=== PATIENT | male | born 1955 | race Caucasian/White ===

== ENCOUNTER 2016-12-05 08:05 | Day surgery (SDC) | payer BC ==
[2016-12-05] VITALS (22 sets, daily range): BP systolic 119–191; BP diastolic 72–93; PULSE 62–92; RESP 14–69; Ht 171.4 cm; Wt 103.8 kg
[~2016-12-05] VITALS: Ht 171.4 cm; Wt 103.8 kg
[~2016-12-05 08:05] MED LIST: ADV10050 INHALATION; ALBU18HF INHALATION; ALBU2.5V3 NEB; ASPI81TA3 PO; BENA40TA41 PO; CLON0.2T5 PO; CLOP75TA28 PO; DOCU-144 PO; FENO134C PO; FURO20TA3 PO; HYDR-3498 PO; INSU100C SQ; ISOS30TA5 PO; LANT3I SC; METO-407 PO; POTA8TAB46 PO; RANI150C11 PO; SMV40T PO; TERA2CAP3 PO; TRAZ100T15 PO; VIT500LI PO; vit d2 BU
[2016-12-05 09:52] LABS: ADD SCAN DIFF NO
[2016-12-05 09:53] LABS: BASOPHIL # 0.1 10^3/ul (0.0-0.1); BASOPHILS % 1.2 % (0.0-2.0); EOSINOPHILS # 0.3 10^3/ul (0.0-0.5); EOSINOPHILS % 5.1 % (0.0-7.0); HEMATOCRIT 36.9 % (42.0-52.0); HEMOGLOBIN 12.1 g/dl (14.0-18.0); LYMPHOCYTES # 1.1 10^3/ul (0.8-2.9); LYMPHOCYTES % 21.8 % (15.0-51.0); MEAN CORPUSCULAR HGB CONC 32.8 g/dl (32.0-37.0); MEAN CORPUSCULAR VOLUME 91.6 fl (82.0-101.0); MEAN PLATELET VOLUME 11.4 fl (7.4-10.4); MONOCYTE # 0.4 10^3/ul (0.3-0.9); NEUTROPHIL # 3.1 10^3/ul (1.6-7.5); NEUTROPHILS % 62.7 % (39.0-77.0); PLATELET COUNT 229 10^3/UL (140-415); RED BLOOD COUNT 4.03 10^6/ul (4.70-6.10); RED CELL DISTRIBUTION WIDTH 13.2 % (11.5-14.5); WHITE BLOOD COUNT 4.9 10^3/ul (4.8-10.8)
[2016-12-05 09:56] LABS: INR 0.97; PROTIME 12.9 Sec (12.2-14.2)
[2016-12-05 09:58] LABS: PARTIAL THROMBOPLASTIN TIME 30.4 Sec (25.0-35.0)
[2016-12-05 10:02] LABS: CALCIUM 9.4 mg/dl (8.4-10.2); CREATININE 1.85 mg/dl (0.61-1.24); POTASSIUM 4.5 mmol/L (3.5-5.1)
[2016-12-05] MEDS ORDERED: HEPARIN 1000 UNITS/ML 10 ML INJ ONE (11:07)
[2016-12-05] MEDS ORDERED: IODIXANOL LOCM 100 ML BTL ONE (11:07)
[2016-12-05] MEDS ORDERED: MIDAZOLAM 1 MG/ML 2 ML INJ ONE (11:07)
[2016-12-05] MEDS ORDERED: FENTAnyl 50 MCG/ML VIAL ONE (11:08)
[2016-12-05] MEDS ORDERED: VERAPAMIL 5 MG INJ ONE (11:08)
[2016-12-05] MEDS ORDERED: NITROGLYCERIN (IC) 100 MCG/ML INJ ONE (11:08)
[2016-12-05] MEDS ORDERED: IOHEXOL 350MG/ML 50 ML BTL ONE (12:08)
[2016-12-05] MEDS ORDERED: CLOPIDOGREL 300 MG TAB ONE (12:11)
[2016-12-05] MEDS ORDERED: SOD CHLORIDE 0.9% 1,000 ML IV SCH (13:01)
--- NOTE | 2016-12-05 13:06 | PDOCDIS ---
Discharge Instructions CONDITION Patient Condition: Good HOME CARE INSTRUCTIONS: Diet Instructions: Low Fat /Cholesterol ACTIVITY: Activity Restrictions: Avoid heavy lifting (x 2 days) Do not Drive (x 1 day) OTHER ORDERS: Other Orders: hold benazepril until nephrology JANI LOWE MD December 05, 2016 13:06
[2016-12-05] MEDS ORDERED: ACETAMINOPHEN 325 MG TAB PO PRN (13:30)
[2016-12-05] MEDS ORDERED: AL HYDROX/MG HYDROX/SIMETH 30 ML CUP PO PRN (13:30)
[2016-12-05] MEDS ORDERED: ONDANSETRON 4 MG INJ IV PRN (13:30)
--- NOTE | 2016-12-05 13:37 | CARRPT ---
DATE OF PROCEDURE: 12/05/2016 PROCEDURES: 1. Left heart catheterization. 2. Right and left coronary angiogram. 3. Interpretation and supervision of right and left coronary angiogram. 3. Failed PCI of the RCA. 4. Left radial artery approach. HARD CANDY BATCH MIXER: Dr. Anderson ROTARY DRYER OPERATOR: Dr. Cotton CONTRAST USED: 45 mL. PATIENT HISTORY: This is a 61-year-old male with a history of non-ST elevation myocardial infarctio n with known coronary artery disease who presents with cardiac catheterization for evaluation of cor onary revascularization. Patient with history of chronic kidney disease with a creatinine of 1.8. This patient was seen by renal physician and was optimized for cardiac catheterization. Benefits an d risks were explained to the patient and family in detail. They demonstrated full understanding of the possible risks including but not limited to worsening renal failure and they have agreed to pro ceed. FINDINGS: Aortic pressure 151/74. CORONARY ANATOMY: 1. Left main is a short vessel of medium caliber with no significant disease. 2. LAD is a medium caliber vessel. The mid segment has a 30% stenosis, mid 30% stenosis, distal 80 % stenosis near the apex with diffuse severe disease seen in the small distal apex LAD. The first d iagonal is a small caliber vessel with a proximal aneurysmal segment at 90% diffuse disease. This i s a small vessel diagonal. 3. Circumflex is a medium caliber vessel and appears codominant. Mid there is a 20% stenosis, dist al OM3 is a small caliber vessel with a 70% stenosis. 4. RCA appears to be a codominant vessel of medium caliber. There is a proximal to mid 30% diffuse stenosis, the proximal PDA is a medium caliber vessel with a 60% to 70% stenosis. DESCRIPTION OF PROCEDURE: The patient was brought [facility] after informed consent. The patient was prepped and draped as per protocol. Left radial access was obtained and a 5/6-Guinean sheath was place in the left radial artery. A 5-[place] JL3.5 diagnostic catheter was used to engage the left main and angiogram was performed. We next used a 5-[place] JR4 catheter to engage the RCA and angiog sebastián was performed. The patient with focal stenosis seen in the PDA with that said, intervention was planned in the same setting. Heparin was used for anticoagulation. A JR4 guide catheter was used. The patient with significant tortuosity noted throughout the RCA. With significant difficulty, we were able to get down to the bifurcation of the PDA and PLB prior to the area of stenosis. Given s ome severe tortuosity, we were unable to advance the wire any further. We next used a BMW wire as a "shane wire" technique and could not get past the midvessel because of severe tortuosity. We tried removing the previous Runthrough wire and going back again but could not get past the severe tortuo sity in the bifurcation of the PDA and PLB because of tortuosity as mentioned previously. At this p oint, fluoro time was significant as well as with contrast use, and given the patient with renal marilee lure, we did not proceed with any further intervention at the current time. Furthermore, the patien t also has been asymptomatic. All catheters and wires were removed. Repeat angiogram was done the procedure which demonstrated no change. There were no immediate complications. DIAGNOSIS: Coronary artery disease. COMPLICATIONS: None. BLOOD LOSS: Minimal. CONTRAST USE: 45 mL. RECOMMENDATIONS: Aggressive medical management. Dictated By: KATY FORREST/OTTO Conf#: [id number] DID#: [id number]
[2016-12-05] MEDS ORDERED: hydrALAzine 20 MG INJ ONE (14:19)
[2016-12-05] MEDS ORDERED: hydrALAzine 20 MG INJ IV ONE (14:30)
== END 2016-12-05 19:10 | disposition home or self-care (01) ==
LOC: SDS 08:05
PROVIDERS: ATTEND Internal Medicine Cardiovascular Disease
DX: I25.10 Atherosclerotic heart disease of native coronary artery without angina pectoris (principal); I21.4 Non-ST elevation (NSTEMI) myocardial infarction; I10 Essential (primary) hypertension; E78.5 Hyperlipidemia, unspecified; I48.91 Unspecified atrial fibrillation
CPT/HCPCS: 80048; 82962; 85025; 85610; 85730; 93458; C1725; C1769; C1887; J0360; J1644; J2250; J3010; Q9967; Z7610

== ENCOUNTER 2016-12-11 23:22 | Observation (INO) | payer BC ==
[~2016-12-11] VITALS: Ht 177.8 cm; Wt 105.5 kg
[2016-12-11] MEDS ORDERED: NITROGLYCERIN 2% 1 GM OINT PKT TD STA (23:55)
[2016-12-11] MEDS ORDERED: morphine 4 MG/ML VIAL IV STA (23:55)
[2016-12-11] MEDS ORDERED: ONDANSETRON 4 MG INJ IV STA (23:55)
[2016-12-11] MEDS ORDERED: ASPIRIN 325 MG TAB PO STA (23:55)
[2016-12-12] VITALS (12 sets, daily range): BP systolic 104–150; BP diastolic 57–78; PULSE 47–65; RESP 16–22; TEMP 97.8; Ht 177.8 cm; Wt 105.5 kg
[2016-12-12] MEDS ORDERED: NITROGLYCERIN (SL) 0.4 MG TAB SL PRN
[2016-12-12 00:06] LABS: ADD SCAN DIFF NO
[2016-12-12 00:09] LABS: BASOPHIL # 0.1 10^3/ul (0.0-0.1); BASOPHILS % 0.9 % (0.0-2.0); EOSINOPHILS # 0.3 10^3/ul (0.0-0.5); EOSINOPHILS % 5.7 % (0.0-7.0); HEMATOCRIT 35.5 % (42.0-52.0); HEMOGLOBIN 11.5 g/dl (14.0-18.0); LYMPHOCYTES # 1.3 10^3/ul (0.8-2.9); LYMPHOCYTES % 23.9 % (15.0-51.0); MEAN CORPUSCULAR HEMOGLOBIN 29.9 pg (29.0-33.0); MEAN CORPUSCULAR HGB CONC 32.4 g/dl (32.0-37.0); MEAN CORPUSCULAR VOLUME 92.2 fl (82.0-101.0); MONOCYTE # 0.5 10^3/ul (0.3-0.9); MONOCYTES % 8.9 % (0.0-11.0); NEUTROPHIL # 3.3 10^3/ul (1.6-7.5); NEUTROPHILS % 60.2 % (39.0-77.0); PLATELET COUNT 236 10^3/UL (140-415); RED BLOOD COUNT 3.85 10^6/ul (4.70-6.10); RED CELL DISTRIBUTION WIDTH 13.2 % (11.5-14.5); WHITE BLOOD COUNT 5.4 10^3/ul (4.8-10.8)
[2016-12-12 00:34] LABS: ALBUMIN/GLOBULIN RATIO 1.35; ANION GAP 11 (8-16)
[2016-12-12 00:35] LABS: ALANINE AMINOTRANSFERASE 28 IU/L (13-69); ALBUMIN 4.2 g/dl (3.3-4.9); ALKALINE PHOSPHATASE 64 IU/L (42-121); ASPARTATE AMINO TRANSFERASE 22 IU/L (15-46); BLOOD UREA NITROGEN 27 mg/dl (7-20); CALCIUM 9.6 mg/dl (8.4-10.2); CARBON DIOXIDE 27 mmol/L (21-31); CHLORIDE 103 mmol/L (97-110); CREATININE 1.96 mg/dl (0.61-1.24); GLUCOSE 191 mg/dl (70-220); SODIUM 137 mmol/L (135-144); TOTAL PROTEIN 7.3 g/dl (6.1-8.1)
[2016-12-12 00:39] LABS: INR 0.93; PROTIME 12.5 Sec (12.2-14.2)
[2016-12-12 00:40] LABS: PARTIAL THROMBOPLASTIN TIME 27.6 Sec (25.0-35.0)
[2016-12-12 00:47] LABS: TROPONIN-I < 0.012 ng/ml (0.00-0.12)
[2016-12-12] MEDS ORDERED: LANT3I SC (01:29)
--- NOTE | 2016-12-12 01:34 | ERA ---
ER Documentation Chief Complaint Date/Time DATE: 12/12/16 TIME: 01:29 Chief Complaint chest pain since 4 hours ago HPI This is 61-year-old male who recently had a cardiac cath who is here for substernal chest pain. The patient states he developed some substernal chest pressure several hours ago and is consistently been there. The pain is described as a pressure sensation without radiation. He is having some shortness of breath is slight. No palpitations syncope dizziness. The patient has a history of reflux and has a non-ST segment elevation myocardial infarction back in April 2016. Patient took 1 of his nitroglycerin and had some mild relief. Patient states the pain feels more like his NV than it does his chronic heartburn. He was told he had some coronary artery disease on his heart cath. Cath was done by Dr. Cotton: DATE OF PROCEDURE: 12/05/2016 PROCEDURES: 1. Left heart catheterization. 2. Right and left coronary angiogram. 3. Interpretation and supervision of right and left coronary angiogram. 3. Failed PCI of the RCA. 4. Left radial artery approach. OPTICAL GOODS DRILLING MACHINE OPERATOR: Dr. Anderson TRANSFERRER: Dr. Cotton CONTRAST USED: 45 mL. PATIENT HISTORY: This is a 61-year-old male with a history of non-ST elevation myocardial infarction with known coronary artery disease who presents with cardiac catheterization for evaluation of coronary revascularization. Patient with history of chronic kidney disease with a creatinine of 1.8. This patient was seen by renal physician and was optimized for cardiac catheterization. Benefits and risks were explained to the patient and family in detail. They demonstrated full understanding of the possible risks including but not limited to worsening renal failure and they have agreed to proceed. FINDINGS: Aortic pressure 151/74. CORONARY ANATOMY: 1. Left main is a short vessel of medium caliber with no significant disease. 2. LAD is a medium caliber vessel. The mid segment has a 30% stenosis, mid 30 % stenosis, distal 80% stenosis near the apex with diffuse severe disease seen in the small distal apex LAD. The first diagonal is a small caliber vessel with a proximal aneurysmal segment at 90% diffuse disease. This is a small vessel diagonal. 3. Circumflex is a medium caliber vessel and appears codominant. Mid there is a 20% stenosis, distal OM3 is a small caliber vessel with a 70% stenosis. 4. RCA appears to be a codominant vessel of medium caliber. There is a proximal to mid 30% diffuse stenosis, the proximal PDA is a medium caliber vessel with a 60% to 70% stenosis. ROS All systems reviewed and are negative except as per history of present illness. Medications Home Meds Active Scripts Isosorbide Mononitrate* (Isosorbide Mononitrate*) 30 Mg Tab.er.24h, 30 MG PO BID for 30 Days Prov:LEONIDAS NICHOLE NP 05/06/16 Clopidogrel Bisulfate (Clopidogrel) 75 Mg Tablet, 75 MG PO DAILY for 30 Days, TAB Prov:LEONIDAS NICHOLE TABLET MAKING MACHINE OPERATOR HELPER 05/06/16 Aspirin (Aspirin) 81 Mg Chew, 81 MG PO DAILY for 30 Days, TAB Prov:LEONIDAS NICHOLE TABLET MAKING MACHINE OPERATOR HELPER 05/06/16 Hydrocodone Bit-Acetaminophen* (Cooter*) 5-325 Mg Tab, 1 TAB PO Q6 Y for PAIN, # 20 TAB Prov:ANNE-MARIE RESENDEZ PA-C 05/04/15 Reported Medications Albuterol Sulfate* (Ventolin HFA*) 18 Gm Hfa.aer.ad, 2 PUFF INHALATION BID, #1 INHALER 05/05/16 Salmeterol Xinaf-Fluticasone* (Advair*) 100/50 Diskus Inhaler, 1 INH INHALATION BID, #1 INHALER 05/05/16 Albuterol Sulfate* (Albuterol Sulfate* Neb) 0.083%-3 Ml Neb, 1.25 MG NEB Q6 Y for prn, #30 VIAL 05/05/16 Insulin Lispro (Humalog) 100 Unit/1 Ml Cartridge, 100 UNIT SQ sliding scale 05/05/16 Insulin Glargine* (Lantus*) 100 Unit/Ml Soln, 64 UNIT SC QHS, #1 VIAL 05/05/16 Vit C-Ascorbate Ca-Ascorb Sod (Vitamin C) 500 Mg/15 Ml Liquid, 500 MG PO 2x/ week, ML 05/05/16 [vit d2] No Conflict Check, 1.25 MG BU q week 05/05/16 Furosemide* (Furosemide*) 20 Mg Tablet, 20 MG PO DAILY, #60 TAB 05/05/16 Potassium Chloride (K-Tab ER) 8 Meq Tablet.er, 8 MEQ PO DAILY, TAB 05/05/16 Docusate Sodium* (Colace*) 100 Mg Capsule, 100 MG PO BID, #60 CAP 05/05/16 Ranitidine Hcl (Ranitidine Hcl) 150 Mg Capsule, 150 MG PO BID, #60 CAP 05/05/16 Fenofibrate, Micronized (Fenofibrate) 134 Mg Capsule, 134 MG PO DAILY, CAP 05/05/16 Trazodone Hcl* (Trazodone Hcl*) 100 Mg Tablet, 100 MG PO QHS, #30 TAB 05/05/16 Simvastatin (Simvastatin) 40 Mg Tablet, 40 MG PO QHS, #30 TAB 05/05/16 Clonidine Hcl* (Clonidine Hcl*) 0.2 Mg Tablet, 0.2 MG PO Q8, TAB 05/05/16 Terazosin Hcl* (Terazosin Hcl*) 2 Mg Capsule, 2 MG PO HS, CAP 05/05/16 Metoprolol Tartrate* (Lopressor*) 100 Mg Tablet, 100 MG PO BID, #60 TAB 05/04/16 Discontinued Reported Medications Benazepril Hcl* (Benazepril Hcl*) 40 Mg Tablet, 40 MG PO DAILY, #30 TAB 05/05/16 Allergies Allergies: Coded Allergies: No Known Allergy (Unverified , 12/12/16) PMhx/Soc History of Surgery: Yes (HERNIA REPAIR) Anesthesia Reaction: No Hx Neurological Disorder: Yes (CVA LEFT SIDED WEAKNESS) Hx Respiratory Disorders: Yes (VALLEY FEVER) Hx Cardiac Disorders: Yes (VALVE INSUFFICIENCY,CAD,NSTEMI,HLD ,HTN) Hx Psychiatric Problems: No Hx Miscellaneous Medical Probl: No Hx Alcohol Use: No Hx Substance Use: No Hx Tobacco Use: No (QUIT) Smoking Status: Former smoker FmHx Family History: No coronary disease Physical Exam Vitals Vital Signs Date Time Temp Pulse Resp B/P Pulse Ox O2 Delivery O2 Flow Rate FiO2 12/12/16 00:55 55 118/64 12/11/16 23:45 Nasal Cannula 2 12/11/16 23:45 98.4 61 16 163/80 98 Nasal Cannula 2.0 12/11/16 23:27 97.8 69 20 191/89 100 Physical Exam Const: Well-developed, well-nourished Head: Atraumatic, normocephalic Eyes: Normal Conjunctiva, PERRLA, EOMI, normal sclera, no nystagmus ENT: Normal External Ears, Nose and Mouth, moist mucus membranes. Neck: Full range of motion. No meningismus, no lymphadenopathy. Resp: Clear to auscultation bilaterally, no wheezing, rhonchi, rales Cardio: Regular rate and rhythm, no murmurs, S1 S2 present Abd: Soft, non tender x 4, non distended. Normal bowel sounds, no guarding or rebound, no pulsitile abdominal masses or bruits Skin: No petechiae or rashes, no ecchymosis , no maculopapular rash Back: No midline or flank tenderness Ext: No cyanosis, or edema, FROM x 4, normal inspection, neurovascularly intact x 4 Neur: Awake and alert, STR 5/5 x 4, sensation intact x 4, no focal findings, cerebellum intact Psych: Normal Mood and Affect Result Diagram: 12/11/16 2355 12/11/16 2355 Results 24 hrs Laboratory Tests Test 12/11/16 23:55 White Blood Count 5.410^3/ul Red Blood Count 3.8510^6/ul Hemoglobin 11.5g/dl Hematocrit 35.5% Mean Corpuscular Volume 92.2fl Mean Corpuscular Hemoglobin 29.9pg Mean Corpuscular Hemoglobin Concent 32.4g/dl Red Cell Distribution Width 13.2% Platelet Count 26589^3/UL Mean Platelet Volume 11.0fl Neutrophils % 60.2% Lymphocytes % 23.9% Monocytes % 8.9% Eosinophils % 5.7% Basophils % 0.9% Nucleated Red Blood Cells % 0.0/100WBC Neutrophils # 3.310^3/ul Lymphocytes # 1.310^3/ul Monocytes # 0.510^3/ul Eosinophils # 0.310^3/ul Basophils # 0.110^3/ul Nucleated Red Blood Cells # 0.010^3/ul Prothrombin Time 12.5Sec Prothrombin Time Ratio 1.0 INR International Normalized Ratio 0.93 Activated Partial Thromboplast Time 27.6Sec Sodium Level 137mmol/L Potassium Level 4.0mmol/L Chloride Level 103mmol/L Carbon Dioxide Level 27mmol/L Anion Gap 11 Blood Urea Nitrogen 27mg/dl Creatinine 1.96mg/dl Glucose Level 191mg/dl Calcium Level 9.6mg/dl Total Bilirubin 0.0mg/dl Direct Bilirubin 0.00mg/dl Indirect Bilirubin 0.0mg/dl Aspartate Amino Transf (AST/SGOT) 22IU/L Alanine Aminotransferase (ALT/SGPT) 28IU/L Alkaline Phosphatase 64IU/L Troponin I < 0.012ng/ml Total Protein 7.3g/dl Albumin 4.2g/dl Globulin 3.10g/dl Albumin/Globulin Ratio 1.35 Current Medications Medications (Trade) Dose Ordered Sig/Maximiliano Route PRN Reason Start Time Stop Time Status Last Admin Dose Admin Aspirin (Aspirin) 325 mg ONCE STAT PO 12/11/16 23:55 12/11/16 23:58 DC 12/12/16 00:07 Nitroglycerin (Nitroglycerin 2% Oint) 1 inch ONCE STAT TD 12/11/16 23:55 12/11/16 23:58 DC 12/12/16 00:07 Nitroglycerin (Nitroglycerin (Sl Tab) 0.4 Mg) 1 tab Q5M UP TO 3 DOSES PRN SL CHEST PAIN 12/12/16 00:00 Morphine Sulfate (morphine) 4 mg ONCE STAT IV 12/11/16 23:55 12/11/16 23:58 DC 12/12/16 00:08 Ondansetron HCl (Zofran Inj) 4 mg ONCE STAT IV 12/11/16 23:55 12/11/16 23:58 DC 12/12/16 00:07 Procedures/MDM EKG: Rate/Rhythm: Normal sinus rhythm, right bundle branch block QRS, ST, QT: NORMAL [place], QRS, QT] Impression: Abnormal EKG] Chest x-ray has been taking but is currently pending. Patient does have evidence of CAD on his heart cath done recently. He says his pain is like his cardiac pain and not reflux. His pain is currently better after nitroglycerin. We will admit for rule out / consultation cardiology. Departure Diagnosis: Primary Impression: Chest pain Qualified Code: R07.9 - Chest pain, unspecified type Additional Impression: CAD (coronary artery disease) Qualified Code: I25.118 - Coronary artery disease of [place] heart with stable angina pectoris, unspecified vessel or lesion type Condition: Stable ABI OBREGON DO December 12, 2016 01:34
[2016-12-12] MEDS ORDERED: ONDANSETRON 4 MG INJ IV PRN (04:00)
[2016-12-12] MEDS ORDERED: ACETAMINOPHEN 325 MG TAB PO PRN (04:00)
--- NOTE | 2016-12-12 04:21 | RADRPT ---
PROCEDURE: Chest. CLINICAL INDICATION: Chest pain. TECHNIQUE: Single frontal view of the chest was obtained. COMPARISON: None. FINDINGS: The cardiac silhouette is magnified. The aortic arch is calcified. There is no focal consolidation , vascular congestion or pleural effusion. There is no pneumothorax. IMPRESSION: No evidence for active cardiopulmonary disease. Aortic atherosclerosis. .Marcus Carrasco MD, MD Date Time Electronically viewed and signed by .Marcus Carrasco MD, on 12/12/2016 04:21 .T/
--- NOTE | 2016-12-12 08:59 | HP ---
DATE OF ADMISSION: 12/12/2016 TIME SEEN: 4 a.m. CHIEF COMPLAINT: Chest pain. HISTORY OF PRESENT ILLNESS: The patient is a 61-year-old male with a history of triple vessel coron saud artery disease, CKD, hypertension, SVT, diabetes, dyslipidemia, BPH, and CVA in 2008 with residu al left-sided weakness, who presented to the emergency department with a chief complaint of chest pa in. The chest pain started at 7 p.m. last night and it is left-sided, described as sharp, with no r adiation to his arm or jaw area. No associated nausea, vomiting, or diaphoresis. The patient was r ecently admitted here a week ago and had left heart catheterization with several small vessel diseas e findings. Plan was for aggressive medical management. The patient is accompanied by his , kenneth del rio is at the bedside, and they reported that the patient has been compliant with all his medications . When the patient presented to the ER, blood pressure was 191/89, heart rate 69, respiratory rate 2 0, temperature 97.8, oxygen saturation 100% on room air. He was given aspirin, nitroglycerin and mo rphine. Currently, he is chest pain free. REVIEW OF SYSTEMS: A 12-point review of systems was performed and negative except as mentioned in t he HPI. PAST MEDICAL HISTORY: As per HPI. PAST SURGICAL HISTORY: Hernia repair. SOCIAL HISTORY: He is a former smoker, he quit several years ago. ALLERGIES: NO KNOWN DRUG ALLERGIES. HOME MEDICATIONS: 1. Albuterol. 2. Plavix 3. Clonidine. 4. Fenofibrate. 5. Imdur 6. Lopressor. 7. Zocor. 8. Terazosin. 9. Aspirin. 10. [place]. 11. Lasix. 12. Trazodone. 13. Potassium. 14. Advair. 15. Colace. 16. Insulin. 17. Vitamin C. 18. Vitamin D. PHYSICAL EXAMINATION: VITAL SIGNS: Blood pressure 104/57, heart rate 63, respiratory rate 20, temperature 97.7, oxygen sa turation 100% on 2 liters. GENERAL: Obese male lying in bed, in no acute distress. He is slow when answering questions, but h as been answering them appropriately and he is able to speak in full sentences. HEENT: No obvious head deformity. Pupils equal and react to light. Extraocular muscles intact. CARDIOVASCULAR: Bradycardic, with a regular rhythm. LUNGS: Clear anteriorly. ABDOMEN: Obese, soft, nontender, nondistended. Positive bowel sounds. EXTREMITIES: No edema. NEUROLOGIC: The left side of his body has decreased strength as compared to his right. LABORATORY: Hemoglobin 11.5, BUN 27, creatinine 1.96. Otherwise CBC and CMP are within normal limi ts. IMAGING: Chest x-ray shows no evidence of active cardiopulmonary disease. IMPRESSION: 1. Chest pain. 2. History of triple-vessel coronary artery disease. 3. History of cerebrovascular accident in 2008, with left-sided residual deficit. 4. History of hypertension. 5. History of diabetes mellitus. 6. History of dyslipidemia. 7. History of supraventricular tachycardia. 8. History of benign prostatic hypertrophy. PLAN: The plan is to continue telemetry monitoring. Will continue his home medications which, shikha g other things, includes Plavix, statin and Imdur. Will trend his troponin. Will notify Dr. Cotton about the patient's admission. Further workup and management per clinical course. Dictated By: TONY GREEN/OTTO Conf#: [id number] DID#: [id number]
[2016-12-12] MEDS ORDERED: CLOPIDOGREL 75 MG TAB PO ONE (10:30)
--- NOTE | 2016-12-12 11:00 | CONS ---
Date/Time of Note Date/Time of Note DATE: 12/12/16 TIME: 10:55 Assessment/Plan Assessment/Plan Additional Assessment/Plan Chest pain Coronary artery disease Preserved ejection fraction Hypertension Diabetes Dyslipidemia Chronic kidney disease -Patient with episode of sharp mid sternum and left-sided chest pain yesterday which has since resolved. ECG without significant ischemic abnormalities and initial troponins are negative. Patient with cardiac catheterization earlier this month with evidence of distal vessel disease. Would obtain serial cardiac enzymes, restart aspirin, Plavix, statin therapy and beta-arjun. Blood pressure currently on the lower end. If blood pressure able to tolerate, would restart imdur. Consultation Date/Type/Reason Admit Date/Time December 12, 2016 at 03:49 Type of Consultation: cv Reason for Consultation Chest pain Hx of Present Illness This is a 61-year-old male with past medical history of coronary artery disease , diabetes, hypertension, chronic kidney disease who presents with chest pain which began yesterday evening. Patient was watching television and developed sharp chest discomfort in his mid chest. There is no associated shortness of breath. Pain was possibly worse with movements. Pain did not resolve and for that reason he came to the emergency room for evaluation. In the emergency room , chest pain has resolved and has had no further episodes since. Prior to this , he denies exertional chest pain. He has been having exertional shortness of breath for some time and underwent a recent cardiac catheterization earlier this month. Furthermore, his blood pressure was uncontrolled upon arrival to the emergency room. Currently denies any chest pain, shortness of breath. Denies any abdominal pain, nausea, vomiting. 12 point review of systems was performed with all pertinent positives and negatives mentioned above and all else is negative Past Medical History Medical History: coronary artery disease, diabetes, high cholesterol, hypertension, renal disease Past Surgical History Past Surgical Hx: no surgical history Family History Significant Family History: no pertinent family hx Social History Alcohol Use: none Smoking Status: Former smoker Other Social History Lives at home with family Exam/Review of Systems Vital Signs Vitals Vital Signs Date Time Temp Pulse Resp B/P Pulse Ox O2 Delivery O2 Flow Rate FiO2 12/12/16 08:30 47 12/12/16 07:27 97.7 16 126/74 99 12/12/16 05:00 Nasal Cannula 2.0 Exam No apparent distress, at bedside Constitutional: alert, obese, oriented Head: normocephalic Neck: supple Respiratory: clear to auscultation, normal air movement Cardiovascular: other (S1-S2 heard), regular rate and rhythm Gastrointestinal: bowel sounds, non-tender, other (No guarding), soft Extremities: edema (Trace) Results Result Diagram: 12/11/16 2355 12/11/16 2355 Results 24 hrs Laboratory Tests Test 12/11/16 23:55 12/12/16 07:42 White Blood Count 5.4 Red Blood Count 3.85 L Hemoglobin 11.5 L Hematocrit 35.5 L Mean Corpuscular Volume 92.2 Mean Corpuscular Hemoglobin 29.9 Mean Corpuscular Hemoglobin Concent 32.4 Red Cell Distribution Width 13.2 Platelet Count 236 Mean Platelet Volume 11.0 H Neutrophils % 60.2 Lymphocytes % 23.9 Monocytes % 8.9 Eosinophils % 5.7 Basophils % 0.9 Nucleated Red Blood Cells % 0.0 Neutrophils # 3.3 Lymphocytes # 1.3 Monocytes # 0.5 Eosinophils # 0.3 Basophils # 0.1 Nucleated Red Blood Cells # 0.0 Prothrombin Time 12.5 Prothrombin Time Ratio 1.0 INR International Normalized Ratio 0.93 Activated Partial Thromboplast Time 27.6 Sodium Level 137 Potassium Level 4.0 Chloride Level 103 Carbon Dioxide Level 27 Anion Gap 11 Blood Urea Nitrogen 27 H Creatinine 1.96 H Glucose Level 191 Calcium Level 9.6 Total Bilirubin 0.0 L Direct Bilirubin 0.00 Indirect Bilirubin 0.0 Aspartate Amino Transf (AST/SGOT) 22 Alanine Aminotransferase (ALT/SGPT) 28 Alkaline Phosphatase 64 Troponin I < 0.012 Total Protein 7.3 Albumin 4.2 Globulin 3.10 Albumin/Globulin Ratio 1.35 Bedside Glucose 105 Medications Medications Current Medications Clopidogrel Bisulfate (plaVIX) 75 mg DAILY PO ; Start 12/12/16 at 11:00 Aspirin (Halfprin) 81 mg DAILY PO ; Start 12/13/16 at 09:00 Ranolazine (Ranexa) 500 mg Q12 PO ; Start 12/12/16 at 12:00 Isosorbide Dinitrate (Isordil) 10 mg TID PO ; Start 12/12/16 at 13:00 Metoprolol Tartrate (Lopressor) 50 mg BID PO ; Start 12/12/16 at 21:00 Procedures Procedures ECG done yesterday demonstrates sinus rhythm at 61 bpm, right bundle branch block, no significant ischemic ST2 other malady seen, QRS 144 ms Lawrence Cotton DO December 12, 2016 11:00
--- NOTE | 2016-12-12 11:07 | CONS ---
DATE OF ADMISSION: 12/12/2016 DATE OF CONSULTATION: 12/12/2016 TYPE OF CONSULTATION: Nephrology. REASON FOR CONSULTATION: End-stage heart failure. PHYSICIAN REQUESTING CONSULT: Dr. Guy HISTORY OF PRESENT ILLNESS: This is a 61-year-old male with a past medical history of coronary karla ry disease, history of CKD stage IIIB/IV, with a baseline creatinine of around 1.8, ____ history of hypertension, history of diabetes, dyslipidemia, obesity, BPH, previous history of CVA with left-si ded residual weakness, history of SVT, who presented to [facility] for evaluation of chest pain. The patient recently had a cardiac angiogram performed by Dr. Cotton about 1 week ag o which showed significant disease, but no PCI or stenting was performed due to difficult anatomy. The patient since then was stable until last night when he developed left-sided chest pain with radi ation to his arms and jaws. As a result, he came into the emergency room. Upon arrival, patient wa s hypertensive with systolic pressures of 190. In the emergency room, the patient was given nitrogl ycerin, aspirin, morphine. The patient had laboratory data drawn, which showed a normal troponin. He was subsequently stabilized and transferred to telemetry for evaluation. In terms of the patient's renal history, the patient has underlying disease with baseline creatinine is around 1.8, ____ per Dr. Cotton. The patient is being followed by boat designer, but is a poor h istorian and does not know the extent of his boat designer's name. The patient denies any recent NSA ID use. The patient did recently have contrast exposure 1 week ago and is on diuretic therapy. Rafita es any rash, hemoptysis, hemetemesis, hematochezia. PAST MEDICAL HISTORY: History of CKD stage IIIB/IV, history of coronary artery disease, history of hypertension, history of diabetes, history of SVT, history of dyslipidemia, BPH, history of CVA. PAST SURGICAL HISTORY: Status post hernia repair, status post cardiac catheterization. SOCIAL HISTORY: Distant former smoker. FAMILY HISTORY: Noncontributory. ALLERGIES: NO KNOWN DRUG ALLERGIES. MEDICATIONS: Patient medications have been reviewed. REVIEW OF SYSTEMS: A 14-point review of systems was conducted. Pertinent positives in HPI, otherwi se negative. PHYSICAL EXAMINATION: VITAL SIGNS: Blood pressure 126/74, respirations 16, pulse 59, temperature 97.7. HEENT: Head is normocephalic. NECK: Supple. HEART: Regular rate. LUNGS: Show diminished breath sounds at the base. ABDOMEN: Soft, nontender to palpation without rebound or guarding. EXTREMITIES: Negative for clubbing, cyanosis, or edema. DERMATOLOGIC: No rashes. MUSCULOSKELETAL: No joint effusions. NEUROLOGIC: No focal deficits. The patient's medications have been reviewed. LABORATORY DATA: Shows sodium 137, potassium 4.0, chloride 103, BUN 27, creatinine 1.96. White cou nt 5.4, hemoglobin 11.5, hematocrit 35.5, platelet count 236. ASSESSMENT AND PLAN: This is a 61-year-old male who presents with: 1. Nonoliguric acute kidney injury on top of chronic kidney disease stage III with a previous basel ine creatinine around 1.8 mg/dL. Etiology of acute kidney injury is likely secondary to hemodynamic s. The possibility of contrast-induced nephropathy is less likely, given the patient's contrast exp osure was approximately 1 to 2 weeks ago and the patient's renal function is near baseline. However , will do a full workup by checking a UA with microanalysis, check urine electrolytes. We will che k renal ultrasound to evaluate renal parenchyma. Would otherwise continue supportive care, renally dose meds, avoid nephrotoxins. Would defer any NSAIDs at this time. Monitor closely. 2. Anemia of chronic disease. Continue to monitor hemoglobin and hematocrit levels. 3. Mineral bone disorder level, will monitor calcium and phosphorus levels ____for phos binders. 4. Hypertension. Continue current blood pressure regimen. Would defer EFREN inhibitor at this time. 5. Chest pain with coronary artery disease. The patient is being ruled out for acute coronary synd gilberto. Continue to check serial troponins. Continue medical management and follow up with Cardiolog y. 6. History of cerebrovascular accident with left-sided residual weakness. Continue medical managem ent. 7. Diabetes. Continue Accu-Cheks and sliding scale. 8. Obesity. Continue dietary modification. 9. Dyslipidemia. Continue statin therapy. 10. Benign prostatic hypertrophy. Continue medical management. Thank you, Dr. Guy, for this interesting consult. It will be a pleasure to follow patient with you throughout the hospital course. Dictated By: ROMAN JENSEN/OTTO Conf#: [id number] [facility]#: [id number]
[2016-12-12] MEDS: ACCU-CHEK XX SCH ×3 (11:52→20:55)
[2016-12-12] MEDS: RANOLAZINE (SR) 500 MG TAB PO SCH ×2 (12:08→21:09)
[2016-12-12] MEDS: CLOPIDOGREL 75 MG TAB PO SCH (12:09)
[2016-12-12] MEDS: ISOSORBIDE DINITRATE 10 MG TAB PO SCH ×2 (12:09→20:57)
[2016-12-12 12:21] LABS: CREATINE KINASE 173 IU/L (23-200)
[2016-12-12 12:32] LABS: CK-MB 2.01 ng/ml (0.0-2.4)
[2016-12-12 12:36] LABS: TROPONIN-I < 0.012 ng/ml (0.00-0.12)
[2016-12-12] MEDS ORDERED: ALBUTEROL 0.083% (NEB) 2.5 MG/3 ML AMP NEB PRN (14:00)
[2016-12-12] MEDS ORDERED: HYDROCODONE/APAP (5/325) TAB PO PRN (14:00)
[2016-12-12] MEDS ORDERED: INSULIN LISPRO 100 UNIT SQ SCH (14:00)
[2016-12-12] MEDS ORDERED: NON-FORMULARY/PATIENT OWN MED (Fenofibrate, Micronized (Fenofibrate) 134 MG) PO SCH (14:00)
--- NOTE | 2016-12-12 14:04 | PN ---
Date/Time of Note Date/Time of Note DATE: 12/12/16 TIME: 13:41 Assessment/Plan VTE Prophylaxis VTE Prophylaxis Intervention: heparin Lines/Catheters IV Catheter Type (from Nrsg): Saline Lock Assessment/Plan Assessment/Plan 1. Chest pain, resolved, follow up with troponin, add ranexa 2. CAD with distal triple-vessel disease, medical management, follow up with cardiology 3. Cerebrovascular accident in 2008, with left-sided residual deficit, stable 4. hypertension, controlled 5. Diabetes mellitus. 6. Dyslipidemia. 7. History of supraventricular tachycardia. 8. Benign prostatic hypertrophy, flomax Subjective 24 Hr Interval Summary Free Text/Dictation no chest pain or shortness of breath Exam/Review of Systems Vital Signs Vitals Vital Signs Date Time Temp Pulse Resp B/P Pulse Ox O2 Delivery O2 Flow Rate FiO2 12/12/16 12:30 53 12/12/16 11:26 98.4 16 120/66 100 12/12/16 05:00 Nasal Cannula 2.0 Exam Constitutional: alert, oriented, well developed Psych: nl mood/affect, no complaints Head: atraumatic, normocephalic Eyes: EOMI, PERRL, nl conjunctiva, nl lids ENMT: nl external ears & nose, nl lips & teeth, nl nasal mucosa & septum Neck: non-tender, supple Respiratory: clear to auscultation, normal air movement, No congested cough, No crackles/rales, No diminished breath sounds, No intercostal retraction, No labored breathing, No other, No respirations, No tactile fremitus, No wheezing Cardiovascular: nl pulses, regular rate and rhythm, No S3, No S4, No bruits, No diastolic murmur, No edema, No gallop, No irregular rhythm, No jugular venous distention (JVD), No murmurs/extra sounds, No other, No rub, No systolic murmur Gastrointestinal: nl liver, spleen, non-tender, soft, No ascites, No bowel sounds, No distended, No firm, No hepatomegaly, No mass , No other, No rebound or guarding, No splenomegaly, No surgical scars, No tender Musculoskeletal: nl extremities to inspection Extremities: normal pulses, No calf tenderness, No clubbing, No cyanosis, No edema, No other, No palpable cord, No pitting pedal edema, No tenderness Neurological: POLYETHYLENE COMBINER II-XII intact, nl mental status, nl speech, nl strength Skin: nl turgor Lymph: nl lymph nodes Results Result Diagram: 12/11/16 2355 12/11/16 2355 Results 24 hrs Laboratory Tests Test 12/11/16 23:55 12/12/16 07:42 12/12/16 11:21 12/12/16 11:33 White Blood Count 5.4 Red Blood Count 3.85 L Hemoglobin 11.5 L Hematocrit 35.5 L Mean Corpuscular Volume 92.2 Mean Corpuscular Hemoglobin 29.9 Mean Corpuscular Hemoglobin Concent 32.4 Red Cell Distribution Width 13.2 Platelet Count 236 Mean Platelet Volume 11.0 H Neutrophils % 60.2 Lymphocytes % 23.9 Monocytes % 8.9 Eosinophils % 5.7 Basophils % 0.9 Nucleated Red Blood Cells % 0.0 Neutrophils # 3.3 Lymphocytes # 1.3 Monocytes # 0.5 Eosinophils # 0.3 Basophils # 0.1 Nucleated Red Blood Cells # 0.0 Prothrombin Time 12.5 Prothrombin Time Ratio 1.0 INR International Normalized Ratio 0.93 Activated Partial Thromboplast Time 27.6 Sodium Level 137 Potassium Level 4.0 Chloride Level 103 Carbon Dioxide Level 27 Anion Gap 11 Blood Urea Nitrogen 27 H Creatinine 1.96 H Glucose Level 191 Calcium Level 9.6 Total Bilirubin 0.0 L Direct Bilirubin 0.00 Indirect Bilirubin 0.0 Aspartate Amino Transf (AST/SGOT) 22 Alanine Aminotransferase (ALT/SGPT) 28 Alkaline Phosphatase 64 Troponin I < 0.012 < 0.012 Total Protein 7.3 Albumin 4.2 Globulin 3.10 Albumin/Globulin Ratio 1.35 Bedside Glucose 105 100 Creatine Kinase 173 Creatine Kinase Index 1.2 Creatinine Kinase MB (Mass) 2.01 Medications Medications Current Medications Clopidogrel Bisulfate (plaVIX) 75 mg DAILY PO Last administered on 12/12/16 12 :09; Admin Dose 75 MG; Start 12/12/16 at 11:00 Aspirin (Halfprin) 81 mg DAILY PO ; Start 12/13/16 at 09:00 Ranolazine (Ranexa) 500 mg Q12 PO Last administered on 12/12/16 12:08; Admin Dose 500 MG; Start 12/12/16 at 12:00 Isosorbide Dinitrate (Isordil) 10 mg TID PO Last administered on 12/12/16 12: 09; Admin Dose 10 MG; Start 12/12/16 at 13:00 Metoprolol Tartrate (Lopressor) 50 mg BID PO ; Start 12/12/16 at 21:00 JOSEPH CRONIN MD December 12, 2016 13:53
[2016-12-12] MEDS ORDERED: HEPARIN 5,000 UNIT/0.5 ML VIAL SC ONE (14:30)
[2016-12-12] MEDS ORDERED: CLOPIDOGREL 75 MG TAB PO SCH (15:00)
[2016-12-12] MEDS ORDERED: ALBUTEROL HFA 8 GM INHALER ZFS PRN (15:00)
[2016-12-12] MEDS ORDERED: ALBUTEROL 18 GM INHALER INH PRN (15:00)
[2016-12-12] MEDS: DOCUSATE SODIUM 100 MG CAP PO SCH ×2 (15:00→20:56)
[2016-12-12] MEDS: ASPIRIN 81 MG TAB PO SCH (15:28)
[2016-12-12] MEDS: RANITIDINE 150 MG TAB PO SCH ×2 (15:29→20:57)
[2016-12-12] MEDS: SALMETEROL/FLUTICASONE 100/50 INHA INH SCH ×2 (15:29→20:54)
[2016-12-12] MEDS ORDERED: GLUCAGON 1 MG INJ IM PRN (16:00)
[2016-12-12] MEDS ORDERED: GLUCOSE GEL 15 GRAM TUBE PO PRN ×2 (16:00)
[2016-12-12] MEDS ORDERED: DEXTROSE 50% 50 ML SYRINGE IV PRN ×2 (16:00)
[2016-12-12] MEDS ORDERED: GLUCOSE GEL 15 GRAM TUBE BUCCAL PRN (16:00)
[2016-12-12] MEDS ORDERED: ACCUCHECK 2 AM XX SCH (18:00)
[2016-12-12] MEDS ORDERED: DO NOT FORGET TO ENTER HYPOGLYCEMIC PROTOCOL XX SCH (18:00)
[2016-12-12] MEDS: METOPROLOL 50 MG TAB PO SCH (20:57)
[2016-12-12] MEDS ORDERED: SIMVASTATIN 20 MG TAB PO SCH (21:00)
[2016-12-12] MEDS ORDERED: traZODone 100 MG TAB PO SCH (21:00)
[2016-12-12] MEDS ORDERED: INSULIN GLARGINE [LANtus] 3 ML PEN SC SCH (21:00)
[2016-12-12] MEDS ORDERED: TAMSULOSIN (SR) 0.4 MG CAP PO SCH (21:00)
[2016-12-12] MEDS ORDERED: NON-FORMULARY/PATIENT OWN MED (Simvastatin 40 MG) PO SCH (21:00)
[2016-12-12] MEDS: Insulin NOVOLOG SS MILD Algorithm (SS with meals and bedtime) SC SCH (21:01)
[2016-12-13] VITALS (12 sets, daily range): BP systolic 145–191; BP diastolic 67–86; PULSE 59–77; RESP 16–20
[2016-12-13] MEDS: Insulin NOVOLOG SS MILD Algorithm (SS with meals and bedtime) SC SCH ×2 (07:30→12:00)
[2016-12-13] MEDS: ACCU-CHEK XX SCH ×2 (07:50→11:50)
[2016-12-13 07:51] LABS: ADD SCAN DIFF NO
[2016-12-13 08:00] LABS: BASOPHIL # 0.1 10^3/ul (0.0-0.1); BASOPHILS % 1.3 % (0.0-2.0); EOSINOPHILS # 0.3 10^3/ul (0.0-0.5); EOSINOPHILS % 6.3 % (0.0-7.0); HEMOGLOBIN 11.7 g/dl (14.0-18.0); LYMPHOCYTES # 1.1 10^3/ul (0.8-2.9); LYMPHOCYTES % 23.1 % (15.0-51.0); MEAN CORPUSCULAR HEMOGLOBIN 29.8 pg (29.0-33.0); MEAN CORPUSCULAR HGB CONC 32.5 g/dl (32.0-37.0); MEAN CORPUSCULAR VOLUME 91.8 fl (82.0-101.0); MEAN PLATELET VOLUME 11.1 fl (7.4-10.4); MONOCYTE # 0.5 10^3/ul (0.3-0.9); MONOCYTES % 10.5 % (0.0-11.0); NEUTROPHIL # 2.7 10^3/ul (1.6-7.5); NEUTROPHILS % 58.1 % (39.0-77.0); PLATELET COUNT 243 10^3/UL (140-415); RED BLOOD COUNT 3.92 10^6/ul (4.70-6.10); WHITE BLOOD COUNT 4.6 10^3/ul (4.8-10.8)
[2016-12-13] MEDS: CLOPIDOGREL 75 MG TAB PO SCH (08:06)
[2016-12-13] MEDS: DOCUSATE SODIUM 100 MG CAP PO SCH (08:06)
[2016-12-13] MEDS: METOPROLOL 50 MG TAB PO SCH ×2 (08:06→11:14)
[2016-12-13] MEDS: RANITIDINE 150 MG TAB PO SCH (08:06)
[2016-12-13] MEDS: ISOSORBIDE DINITRATE 10 MG TAB PO SCH (08:06)
[2016-12-13] MEDS: RANOLAZINE (SR) 500 MG TAB PO SCH (08:06)
[2016-12-13] MEDS: ASPIRIN 81 MG TAB PO SCH (08:07)
[2016-12-13] MEDS: SALMETEROL/FLUTICASONE 100/50 INHA INH SCH (08:08)
[2016-12-13 08:14] LABS: POTASSIUM 4.1 mmol/L (3.5-5.1)
[2016-12-13 08:17] LABS: CREATININE 1.93 mg/dl (0.61-1.24)
[2016-12-13 08:18] LABS: CALCIUM 9.2 mg/dl (8.4-10.2); MAGNESIUM 1.9 mg/dl (1.7-2.5); PHOSPHORUS 3.9 mg/dl (2.5-4.9)
[2016-12-13] MEDS ORDERED: ASPIRIN (EC) 81 MG TAB PO SCH (09:00)
[2016-12-13] MEDS ORDERED: FENOFIBRATE 145 MG TAB PO SCH (09:00)
--- NOTE | 2016-12-13 09:26 | PN ---
DATE: 12/13/2016 SUBJECTIVE: The patient is stable, no acute events overnight. No fevers, chills, nausea, vomiting, no shortness of breath. OBJECTIVE: VITAL SIGNS: Blood pressure 151/70, respirations 16, pulse 56, temperature 98.0. HEENT: Head is normocephalic. NECK: Supple. HEART: Regular rate. LUNGS: Show diminished breath sounds at the base. ABDOMEN: Soft, nontender to palpation without rebound or guarding. EXTREMITIES: Negative for clubbing, cyanosis. No edema. DERMATOLOGIC: No rashes. MUSCULOSKELETAL: No joint effusions. NEUROLOGIC: No change in exam. MEDICATIONS: The patient's medications have been reviewed. LABORATORY DATA: Sodium 143, potassium 4.1, chloride 105, BUN 27, creatinine 1.93. White count 4.6 , hemoglobin 9.7, hematocrit 36.0, platelet count is 243. ASSESSMENT AND PLAN: 1. Nonoliguric acute kidney injury on top of chronic kidney disease stage III with a previous basel ine creatinine of 1.8 mg/dL. Etiology of acute kidney injury is secondary to hemodynamics. Renal f unction appears to be stable. His creatinine has been 1.9 mg the last 48 hours. At this point, amy sewell continue current treatment plan, supportive care, renally dose all meds. We will follow up urinaly sis. 2. Anemia of chronic disease. Continue to monitor hemoglobin and hematocrit levels. 3. Mineral bone disorder. Continue to monitor calcium and phosphorus levels. 4. Hypertension. Continue current blood pressure regimen. Would defer EFREN inhibitor at this time. 5. Chest pain, coronary disease. The patient is being ruled out for ACS. Continue medical manageme nt. Serial troponins have been negative. 6. History of cerebrovascular accident, with left-sided residual disease. Continue medial manageme nt. 7. Diabetes, continue Accu-Cheks and sliding scale. 8. Obesity. Continue dietary modification. 9. Dyslipidemia. Continue statin therapy. 10. Benign prostatic hypertrophy. Continue medical management. Dictated By: ROMAN SINHA DO NR/NTS Conf#: [id number] DID#: [id number]
--- NOTE | 2016-12-13 10:01 | CONS ---
Date/Time of Note Date/Time of Note DATE: 12/13/16 TIME: 09:56 Assessment/Plan Assessment/Plan Additional Assessment/Plan Chest pain Coronary artery disease Preserved ejection fraction Hypertension Diabetes Dyslipidemia Chronic kidney disease -Patient with no further episodes of chest pain or shortness of breath. Symptoms unlikely to be secondary to cardiac ischemia with atypical symptoms and negative cardiac enzymes. Would recommend on DC home, to continue Ranexa 500 mg twice a day. No further inpatient cardiac workup needed at the current time. Consultation Date/Type/Reason Admit Date/Time December 12, 2016 at 03:49 Initial Consult Date Type of Consultation: cv 24 HR Interval Summary Free Text/Dictation Patient denies any further chest pain, shortness of breath. Exam/Review of Systems Vital Signs Vitals Vital Signs Date Time Temp Pulse Resp B/P Pulse Ox O2 Delivery O2 Flow Rate FiO2 12/13/16 08:42 60 12/13/16 07:25 98.0 16 151/70 96 12/12/16 20:40 Nasal Cannula 2.0 Intake and Output 12/12/16 12/12/16 12/13/16 15:00 23:00 07:00 Intake Total 980 ml Output Total 4 ml Balance 976 ml Exam No apparent distress, family at bedside Constitutional: alert, obese, oriented Head: normocephalic Neck: supple Respiratory: clear to auscultation, normal air movement Cardiovascular: other (S1-S2 heard), regular rate and rhythm Gastrointestinal: bowel sounds, non-tender, soft Extremities: other (No edema) Results Result Diagram: 12/13/16 0700 12/13/16 0700 Results 24 hrs Laboratory Tests Test 12/12/16 11:21 12/12/16 11:33 12/12/16 17:07 12/12/16 20:53 Creatine Kinase 173 Creatine Kinase Index 1.2 Creatinine Kinase MB (Mass) 2.01 Troponin I < 0.012 Bedside Glucose 100 163 201 Test 12/13/16 01:43 12/13/16 07:00 12/13/16 07:48 Bedside Glucose 129 75 White Blood Count 4.6 L Red Blood Count 3.92 L Hemoglobin 11.7 L Hematocrit 36.0 L Mean Corpuscular Volume 91.8 Mean Corpuscular Hemoglobin 29.8 Mean Corpuscular Hemoglobin Concent 32.5 Red Cell Distribution Width 13.0 Platelet Count 243 Mean Platelet Volume 11.1 H Neutrophils % 58.1 Lymphocytes % 23.1 Monocytes % 10.5 Eosinophils % 6.3 Basophils % 1.3 Nucleated Red Blood Cells % 0.0 Neutrophils # 2.7 Lymphocytes # 1.1 Monocytes # 0.5 Eosinophils # 0.3 Basophils # 0.1 Nucleated Red Blood Cells # 0.0 Sodium Level 143 Potassium Level 4.1 Chloride Level 105 Carbon Dioxide Level 26 Anion Gap 16 Blood Urea Nitrogen 27 H Creatinine 1.93 H Glucose Level 65 #L Calcium Level 9.2 Phosphorus Level 3.9 Magnesium Level 1.9 Medications Medications Current Medications Clopidogrel Bisulfate (plaVIX) 75 mg DAILY PO Last administered on 12/13/16 08 :06; Admin Dose 75 MG; Start 12/12/16 at 11:00 Aspirin (Halfprin) 81 mg DAILY PO Last administered on 12/13/16 08:06; Admin Dose 81 MG; Start 12/13/16 at 09:00 Ranolazine (Ranexa) 500 mg Q12 PO Last administered on 12/13/16 08:06; Admin Dose 500 MG; Start 12/12/16 at 12:00 Isosorbide Dinitrate (Isordil) 10 mg TID PO Last administered on 12/13/16 08: 06; Admin Dose 10 MG; Start 12/12/16 at 13:00 Metoprolol Tartrate (Lopressor) 50 mg BID PO Last administered on 12/12/16 20: 57; Admin Dose 50 MG; Start 12/12/16 at 21:00 Albuterol (Proventil 0.083% (Neb)) 1.25 mg Q6 PRN NEB SHORTNESS OF BREATH; Start 12/12/16 at 14:00 Aspirin (Aspirin) 81 mg DAILY PO Last administered on 12/12/16 15:28; Admin Dose 81 MG; Start 12/12/16 at 15:00 Docusate Sodium (Colace) 100 mg BID PO Last administered on 12/13/16 08:06; Admin Dose 100 MG; Start 12/12/16 at 15:00 Acetaminophen/ Hydrocodone Bitart (Melbeta (5/325)) 1 tab Q6 PRN PO PAIN; Start 12/12/16 at 14:00 Insulin Glargine (Lantus) 50 unit QHS SC Last administered on 12/12/16 21:00; Admin Dose 50 UNIT; Start 12/12/16 at 21:00 Ranitidine HCl (Zantac) 150 mg BID PO Last administered on 12/13/16 08:06; Admin Dose 150 MG; Start 12/12/16 at 15:00 Salmeterol Xinafoate/ Fluticasone (Advair 100/50 Diskus) 1 inh BID INH Last administered on 12/13/16 08:08; Admin Dose 1 INH; Start 12/12/16 at 15:00 Trazodone HCl (Desyrel) 100 mg QHS PO Last administered on 12/12/16 20:56; Admin Dose 100 MG; Start 12/12/16 at 21:00 Ascorbic Acid (Vitamin C) 500 mg MoTh@09 PO ; Start 12/16/16 at 09:00 Ergocalciferol (Drisdol) 50,000 unit Q7D PO ; Start 12/19/16 at 09:00 Tamsulosin HCl (Flomax) 0.4 mg HS PO Last administered on 12/12/16 20:57; Admin Dose 0.4 MG; Start 12/12/16 at 21:00 Fenofibrate (Tricor) 145 mg DAILY PO Last administered on 12/13/16 08:07; Admin Dose 145 MG; Start 12/13/16 at 09:00 Simvastatin (Zocor) 40 mg HS PO Last administered on 12/12/16 20:58; Admin Dose 40 MG; Start 12/12/16 at 21:00 Albuterol (Ventolin Hfa) 2 puff BID PRN INH SHORTNESS OF BREATH; Start at 15:00 Miscellaneous Information 1 ea NOTE XX ; Start 12/12/16 at 16:00 Glucose (Glutose) 15 gm Q15M PRN PO DECREASED GLUCOSE; Start 12/12/16 at 16:00 Glucose (Glutose) 22.5 gm Q15M PRN PO DECREASED GLUCOSE; Start 12/12/16 at 16: 00 Dextrose (D50w Syringe) 25 ml Q15M PRN IV DECREASED GLUCOSE; Start 12/12/16 at 16:00 Dextrose (D50w Syringe) 50 ml Q15M PRN IV DECREASED GLUCOSE; Start 12/12/16 at 16:00 Glucagon (Glucagen) 1 mg Q15M PRN IM DECREASED GLUCOSE; Start 12/12/16 at 16:00 Glucose (Glutose) 15 gm Q15M PRN BUCCAL DECREASED GLUCOSE; Start 12/12/16 at 16 :00 Diagnostic Test (Pha) (Accu-Chek) 1 ea 02 XX Last administered on 12/13/16t 01: 44; Admin Dose 1 EA; Start 12/12/16 at 18:00 Miscellaneous Information 1 ea NOTE XX ; Start 12/12/16 at 18:00 Lawrence Cotton DO December 13, 2016 10:00
[2016-12-13 11:17] LABS: ADD UMIC NO; URINE BILIRUBIN (Dip) NEGATIVE (NEGATIVE); URINE BLOOD (Dip) NEGATIVE (NEGATIVE); URINE COLOR LT. YELLOW (YELLOW); URINE GLUCOSE (Dip) NEGATIVE (NEGATIVE); URINE KETONES (Dip) NEGATIVE (NEGATIVE); URINE LEUKOCYTE ESTERASE (Dip) NEGATIVE (NEGATIVE); URINE NITRITE (Dip) NEGATIVE (NEGATIVE); URINE TOTAL PROTEIN (Dip) NEGATIVE (NEGATIVE); URINE UROBILINOGEN (Dip) 0.2 E.U./dL (0.1-1.0)
[2016-12-13] MEDS ORDERED: ISOSORBIDE MONONITRATE(SR)30 MG TAB PO SCH (13:00)
[2016-12-13] MEDS ORDERED: RANO500T2 PO (14:29)
--- NOTE | 2016-12-13 14:32 | DS ---
Date/Time of Note Date/Time of Note DATE: 12/13/16 TIME: 14:29 Discharge Summary Admission/Discharge Info Admit Date/Time December 12, 2016 at 03:49 Discharge Date/Time Final Diagnosis 1. Chest pain, atypical, resolved, follow up with cardiology 2. CAD with distal triple-vessel disease, medical management, follow up with cardiology 3. Cerebrovascular accident in 2008, with left-sided residual deficit, stable 4. hypertension, controlled 5. Diabetes mellitus. 6. Dyslipidemia. 7. History of supraventricular tachycardia. 8. Benign prostatic hypertrophy, on cardura Patient Condition: Stable Hospital Course he patient is a 61-year-old male with a history of triple vessel coronary artery disease, CKD, hypertension, SVT, diabetes, dyslipidemia, BPH, and CVA in 2008 with residual left-sided weakness, who presented to the emergency department with a chief complaint of chest pain. The chest pain started at 7 p.m. last night and it is left-sided, described as sharp, with no radiation to his arm or jaw area. No associated nausea, vomiting, or diaphoresis. The patient was recently admitted here a week ago and had left heart catheterization with several small vessel disease findings. Plan was for aggressive medical management. The patient is accompanied by his , who is at the bedside, and they reported that the patient has been compliant with all his medications. When the patient presented to the ER, blood pressure was 191/89 , heart rate 69, respiratory rate 20, temperature 97.8, oxygen saturation 100% on room air. He was given aspirin, nitroglycerin and morphine. Patient has been chest pain free after the admission. troponin negative. The chest pain is unlikely ischemic. Patient is add on ranexa. He will follow up with cardiology outpatient. Home Meds Active Scripts Ranolazine* (Ranexa*) 500 Mg Tab.sr.12h, 500 MG PO Q12 for 30 Days, TAB Prov:JOSEPH CRONIN MD 12/13/16 Isosorbide Mononitrate* (Isosorbide Mononitrate*) 30 Mg Tab.er.24h, 30 MG PO BID for 30 Days Prov:LEONIDAS NICHOLE NP 05/06/16 Clopidogrel Bisulfate (Clopidogrel) 75 Mg Tablet, 75 MG PO DAILY for 30 Days, TAB Prov:LEONIDAS NICHOLE NP 05/06/16 Aspirin (Aspirin) 81 Mg Chew, 81 MG PO DAILY for 30 Days, TAB Prov:LEONIDAS NICHOLE [employer]OC[employer] 05/06/16 Hydrocodone Bit-Acetaminophen* ([place]*) 5-325 Mg Tab, 1 TAB PO Q6 Y for PAIN, # 20 TAB Prov:ANNE-MARIE RESENDEZ PA-C 05/04/15 Reported Medications Insulin Glargine* (Lantus*) 100 Unit/Ml Soln, 50 UNIT SC QHS, #1 VIAL 12/12/16 Albuterol Sulfate* (Ventolin HFA*) 18 Gm Hfa.aer.ad, 2 PUFF INHALATION BID, #1 INHALER 05/05/16 Salmeterol Xinaf-Fluticasone* (Advair*) 100/50 Diskus Inhaler, 1 INH INHALATION BID, #1 INHALER 05/05/16 Albuterol Sulfate* (Albuterol Sulfate* Neb) 0.083%-3 Ml Neb, 1.25 MG NEB Q6 Y for prn, #30 VIAL 05/05/16 Insulin Lispro (Humalog) 100 Unit/1 Ml Cartridge, 100 UNIT SQ sliding scale 05/05/16 Vit C-Ascorbate Ca-Ascorb Sod (Vitamin C) 500 Mg/15 Ml Liquid, 500 MG PO 2x/ week, ML 05/05/16 [vit d2] No Conflict Check, 1.25 MG BU q week 05/05/16 Furosemide* (Furosemide*) 20 Mg Tablet, 20 MG PO DAILY, #60 TAB 05/05/16 Potassium Chloride (K-Tab ER) 8 Meq Tablet.er, 8 MEQ PO DAILY, TAB 05/05/16 Docusate Sodium* (Colace*) 100 Mg Capsule, 100 MG PO BID, #60 CAP 05/05/16 Ranitidine Hcl (Ranitidine Hcl) 150 Mg Capsule, 150 MG PO BID, #60 CAP 05/05/16 Fenofibrate, Micronized (Fenofibrate) 134 Mg Capsule, 134 MG PO DAILY, CAP 05/05/16 Trazodone Hcl* (Trazodone Hcl*) 100 Mg Tablet, 100 MG PO QHS, #30 TAB 05/05/16 Simvastatin (Simvastatin) 40 Mg Tablet, 40 MG PO QHS, #30 TAB 05/05/16 Clonidine Hcl* (Clonidine Hcl*) 0.2 Mg Tablet, 0.2 MG PO Q8, TAB 05/05/16 Terazosin Hcl* (Terazosin Hcl*) 2 Mg Capsule, 2 MG PO HS, CAP 05/05/16 Metoprolol Tartrate* (Lopressor*) 100 Mg Tablet, 100 MG PO BID, #60 TAB 05/04/16 Discontinued Reported Medications Insulin Glargine* (Lantus*) 100 Unit/Ml Soln, 64 UNIT SC QHS, #1 VIAL 05/05/16 Benazepril Hcl* (Benazepril Hcl*) 40 Mg Tablet, 40 MG PO DAILY, #30 TAB 05/05/16 Follow-up Plan follow up with PCP and cardiology in one week Primary Care Provider Vijaya Mendoza Pending Labs Laboratory Tests Test 12/12/16 17:07 12/12/16 20:53 12/13/16 01:43 12/13/16 03:35 Bedside Glucose 163mg/dL (70-220) 201mg/dL (70-220) 129mg/dL (70-220) Urine Random Creatinine 86.03mg/dl (20-370) Urine Random Sodium 98mmol/L (30-90) Urine Total Protein 9.0mg/dl (0.0-11.9) Test 12/13/16 07:00 12/13/16 07:48 12/13/16 11:49 White Blood Count 4.610^3/ul (4.8-10.8) Red Blood Count 3.9210^6/ul (4.70-6.10) Hemoglobin 11.7g/dl (14.0-18.0) Hematocrit 36.0% (42.0-52.0) Mean Corpuscular Volume 91.8fl (82.0-101.0) Mean Corpuscular Hemoglobin 29.8pg (29.0-33.0) Mean Corpuscular Hemoglobin Concent 32.5g/dl (32.0-37.0) Red Cell Distribution Width 13.0% (11.5-14.5) Platelet Count 31608^3/UL (140-415) Mean Platelet Volume 11.1fl (7.4-10.4) Neutrophils % 58.1% (39.0-77.0) Lymphocytes % 23.1% (15.0-51.0) Monocytes % 10.5% (0.0-11.0) Eosinophils % 6.3% (0.0-7.0) Basophils % 1.3% (0.0-2.0) Nucleated Red Blood Cells % 0.0/100WBC (0.0-0.0) Neutrophils # 2.710^3/ul (1.6-7.5) Lymphocytes # 1.110^3/ul (0.8-2.9) Monocytes # 0.510^3/ul (0.3-0.9) Eosinophils # 0.310^3/ul (0.0-0.5) Basophils # 0.110^3/ul (0.0-0.1) Nucleated Red Blood Cells # 0.010^3/ul (0.0-0.0) Sodium Level 143mmol/L (135-144) Potassium Level 4.1mmol/L (3.5-5.1) Chloride Level 105mmol/L (97-110) Carbon Dioxide Level 26mmol/L (21-31) Anion Gap 16 (8-16) Blood Urea Nitrogen 27mg/dl (7-20) Creatinine 1.93mg/dl (0.61-1.24) Glucose Level 65mg/dl (70-220) Calcium Level 9.2mg/dl (8.4-10.2) Phosphorus Level 3.9mg/dl (2.5-4.9) Magnesium Level 1.9mg/dl (1.7-2.5) Bedside Glucose 75mg/dL (70-220) 170mg/dL (70-220) JOSEPH CRONIN MD December 13, 2016 14:32
[2016-12-16] MEDS ORDERED: ASCORBIC ACID 500 MG TAB PO SCH (09:00)
[2016-12-17 15:31] LABS: CREATININE, RANDOM URINE 98 mg/dL (20-370); MICROALBUMIN <0.2 mg/dL; MICROALBUMIN/CREATININE RATIO NOTE (<30)
[2016-12-19] MEDS ORDERED: ERGOCALCIFEROL 50,000 UNIT CAP PO SCH (09:00)
== END 2016-12-13 16:00 | disposition home or self-care (01) ==
LOC: E/R 23:22 → MS4 12-12 03:49
PROVIDERS: ADMIT Internal Medicine; ATTEND Internal Medicine
DX: R07.89 Other chest pain (principal); I25.10 Atherosclerotic heart disease of native coronary artery without angina pectoris; I69.354 Hemiplegia and hemiparesis following cerebral infarction affecting left non-dominant side; I12.9 Hypertensive chronic kidney disease with stage 1 through stage 4 chronic kidney disease, or unspecified chronic kidney disease; N18.3 Chronic kidney disease, stage 3 (moderate); E11.9 Type 2 diabetes mellitus without complications; D63.8 Anemia in other chronic diseases classified elsewhere; E78.5 Hyperlipidemia, unspecified; N40.0 Benign prostatic hyperplasia without lower urinary tract symptoms; Z79.02 Long term (current) use of antithrombotics/antiplatelets; Z79.82 Long term (current) use of aspirin; Z79.4 Long term (current) use of insulin; E78.00 Pure hypercholesterolemia, unspecified
CPT/HCPCS: 36415; 71010; 80048; 80053; 81003; 82043; 82550; 82553; 82962; 83735; 84100; 84155; 84300; 84484; 85025; 85610; 85730; 93005; 96372; 96374; 96375; J1644; J1815; J2270; J2405; Z7500; Z7502; Z7610; 99217; G0378